=== PATIENT | male | born 1960 | race Caucasian/White ===

== ENCOUNTER 2018-12-31 23:49 | Inpatient (IN) ==
[2019-01-01] MEDS ORDERED: Sodium Chloride 0.9% 1,000 ML PRIMARY IV ONE ×2 (00:03→21:18)
[2019-01-01 00:12] LABS: BASOPHILS # (AUTO) 0.06 10*3/UL; BASOPHILS % (AUTO) 0.3 % (0-1); EOSINOPHILS # (AUTO) 0.58 10*3/UL; EOSINOPHILS % (AUTO) 3.2 % (0-8); Hematocrit [HCT] 47.1 % (42.0-52.0); Hemoglobin [HGB] 15.1 g/dL (14.0-18.0); LYMPHOCYTES # (AUTO) 9.22 10*3/uL; MEAN CORPUSCULAR HGB CONC 32.1 g/dL (33-37); MEAN CORPUSCULAR VOLUME 90.4 FL (80-90); MONOCYTES # (AUTO) 1.08 10*3/UL (0.3-0.8); NEUTROPHILS # (AUTO) 6.83 10*3/UL; NEUTROPHILS % (AUTO) 38.4 % (50-80); RED BLOOD COUNT 5.21 10^6/uL (4.70-6.10)
[2019-01-01 00:18] LABS: PLATELET MORPHOLOGY COMMENT NORMAL MORPHOLOGY (NORM); RBC MORPHOLOGY COMMENT NORMAL MORPHOLOGY (NORM); WBC MORPHOLOGY COMMENT NORMAL MORPHOLOGY (NORM)
[2019-01-01 00:20] LABS: BUN/CREATININE RATIO 11.87 (6-20); SERUM ALBUMIN 5.2 g/dL (3.5-4.8)
[2019-01-01] MEDS ORDERED: Lidocaine 1% 10 MG/ML - 20 ML VIAL SUBCUT ONE (01:49)
[2019-01-01 02:08] LABS: BILIRUBIN,URINE NEGATIVE (NEG); CLARITY,URINE CLEAR (CLEAR); COLOR,URINE YELLOW (Y); GLUCOSE, URINE (UA) NEGATIVE (NEG); OCCULT BLOOD,URINE NEGATIVE (NEG); PROTEIN,URINE NEGATIVE (NEG); UROBILINOGEN,URINE 0.2 EU/dL (0.2)
[2019-01-01 02:16] LABS: URINE SAMPLE TYPE CLEAN CATCH URINE
[2019-01-01 02:17] LABS: AMPHETAMINE SCREEN NEGATIVE (NEG); CANNABINOID SCREEN,URINE NEGATIVE (NEG); COCAINE SCREEN NEGATIVE (NEG); METHADONE URINE SCREEN NEGATIVE (NEG); METHAMPHETAMINES SCREEN,URINE NEGATIVE (NEG); OPIATE SCREEN,URINE NEGATIVE (NEG); URINE SAMPLE TYPE CLEAN CATCH URINE; URINE SPECIFIC GRAVITY - MAN 1.024
[2019-01-01] MEDS ORDERED: HYDROcodone-APAP 5 MG -325 MG TABLET PO PRN (02:38)
[2019-01-01] MEDS ORDERED: Zolpidem Tab 5 MG TAB PO PRN (02:38)
[2019-01-01] MEDS ORDERED: DEXTROSE 31 GM GEL PO PRN (03:09)
[2019-01-01] MEDS ORDERED: DEXTROSE 50%-WATER SYRINGE 50 ML SYRINGE IVP PRN (03:09)
[2019-01-01] MEDS ORDERED: Insulin Sliding Scale Protocol SUBCUT PRN (03:09)
[2019-01-01] MEDS ORDERED: Glucagon Inj Vial 1 MG/ML VIAL IM PRN (03:09)
[2019-01-01] MEDS ORDERED: DIPH,PERTUSS,TET(ADACEL) VAC/PF 0.5 ML (Tdap) IM ONE (03:38)
[2019-01-01] MEDS: ONDANSETRON 4 MG/2 ML VIAL IVP PRN ×2 (03:45→17:15)
[2019-01-01] MEDS: MORPHINE SULFATE 2 MG/1 ML IVP PRN ×4 (03:48→18:49)
[2019-01-01] MEDS ORDERED: Lactated Ringers 1,000 ML PRIMARY IV SCH (08:30)
[2019-01-01 08:54] LABS: BASOPHILS # (AUTO) 0.02 10*3/UL; BASOPHILS % (AUTO) 0.1 % (0-1); EOSINOPHILS # (AUTO) 0.01 10*3/UL; EOSINOPHILS % (AUTO) 0.1 % (0-8); Hematocrit [HCT] 45.3 % (42.0-52.0); Hemoglobin [HGB] 14.8 g/dL (14.0-18.0); LYMPHOCYTES # (AUTO) 1.29 10*3/uL; MEAN CORPUSCULAR HGB CONC 32.7 g/dL (33-37); MEAN CORPUSCULAR VOLUME 89.2 FL (80-90); MEAN PLATELET VOLUME 9.9 FL (7.4-12.2); MONOCYTES # (AUTO) 1.16 10*3/UL (0.3-0.8); NEUTROPHILS # (AUTO) 14.06 10*3/UL; NEUTROPHILS % (AUTO) 84.6 % (50-80); RED BLOOD COUNT 5.08 10^6/uL (4.70-6.10)
[2019-01-01 08:59] LABS: PLATELET MORPHOLOGY COMMENT NORMAL MORPHOLOGY (NORM); RBC MORPHOLOGY COMMENT NORMAL MORPHOLOGY (NORM); WBC MORPHOLOGY COMMENT NORMAL MORPHOLOGY (NORM)
[2019-01-01 09:05] LABS: BLOOD UREA NITROGEN 21 mg/dL (7-22)
[2019-01-01] MEDS: OMEPRAZOLE 20 MG CAPSULE PO SCH (09:12)
[2019-01-01] MEDS ORDERED: Insulin NPH Kwikpen Inj 100 UNIT/ML INSULN.PEN SUBCUT SCH (11:30)
[2019-01-01] MEDS ORDERED: INSULIN REGULAR, HUMAN 100 UNIT/1 ML - 3 ML SUBCUT SCH (11:30)
[2019-01-01] MEDS: Insulin NPH Kwikpen Inj 100 UNIT/ML INSULN.PEN SUBCUT SCH ×2 (12:25→17:06)
[2019-01-01] MEDS: INSULIN REGULAR, HUMAN 100 UNIT/1 ML - 3 ML SUBCUT SCH ×2 (12:26→17:06)
[2019-01-01] MEDS: HYDROcodone-APAP 5 MG -325 MG TABLET PO PRN ×3 (12:27→20:54)
[2019-01-01] MEDS ORDERED: ALPRAZolam Tab 0.25 MG TABLET PO PRN (21:09)
[2019-01-01] MEDS ORDERED: Sodium Chloride 0.9% 500 ML IV ONE (21:10)
[2019-01-02] MEDS: MORPHINE SULFATE 2 MG/1 ML IVP PRN ×5 (00:09→06:48)
[2019-01-02 00:11] LABS: VENOUS PH 7.35 (7.32-7.42)
[2019-01-02] MEDS: HYDROcodone-APAP 5 MG -325 MG TABLET PO PRN (02:11)
[2019-01-02 05:41] LABS: Hematocrit [HCT] 45.5 % (42.0-52.0); Hemoglobin [HGB] 14.6 g/dL (14.0-18.0); MEAN CORPUSCULAR HGB CONC 32.1 g/dL (33-37); MEAN CORPUSCULAR VOLUME 91.2 FL (80-90); MEAN PLATELET VOLUME 10.8 FL (7.4-12.2); RED BLOOD COUNT 4.99 10^6/uL (4.70-6.10)
[2019-01-02 05:57] LABS: BUN/CREATININE RATIO 17.64 (6-20)
[2019-01-02] MEDS: ONDANSETRON 4 MG/2 ML VIAL IVP PRN (06:08)
[2019-01-02 06:15] LABS: PLATELET MORPHOLOGY COMMENT NORMAL MORPHOLOGY (NORM); RBC MORPHOLOGY COMMENT NORMAL MORPHOLOGY (NORM); WBC MORPHOLOGY COMMENT NORMAL MORPHOLOGY (NORM)
[2019-01-02 06:16] LABS: BAND NEUTROPHILS % 12 % (0-10); BASOPHILS % (MANUAL) 0 % (0-1); EOSINOPHILS % (MANUAL) 0 % (0-8); MONOCYTES % (MANUAL) 4 % (0-12); NEUTROPHILS % (MANUAL) 82 % (50-80)
[2019-01-02] MEDS: Insulin NPH Kwikpen Inj 100 UNIT/ML INSULN.PEN SUBCUT SCH ×2 (06:53→12:34)
[2019-01-02] MEDS: INSULIN REGULAR, HUMAN 100 UNIT/1 ML - 3 ML SUBCUT SCH ×2 (07:01→12:34)
[2019-01-02] MEDS ORDERED: LORazepam 2 MG/1 ML VIAL ONE (07:18)
[2019-01-02] MEDS: LORazepam Inj(ETOH withdrawal) 2 MG/ML VIAL IVP PRN ×2 (07:19→09:10)
[2019-01-02 07:29] VITALS: O2SAT 90
[2019-01-02 09:12] VITALS: BP 174/107
[2019-01-02 09:21] VITALS: RESP 41; TEMP 101.6
[2019-01-02] MEDS: OMEPRAZOLE 20 MG CAPSULE PO SCH (09:29)
[2019-01-02] MEDS ORDERED: DIAZEPAM 10 MG/2 ML (5 MG/1 ML) CARPUJECT IVP ONE (09:35)
[2019-01-02] MEDS ORDERED: Dexmedetomidine/NS 400 MCG/100 ML INFUS..BTL IV SCH ×2 (09:45→12:28)
[2019-01-02] MEDS ORDERED: Sodium Chloride 0.9% 1,000 ML PRIMARY IV ONE ×2 (09:48→12:58)
[2019-01-02] MEDS ORDERED: Sodium Chloride 0.9% 1,000 ML PRIMARY IV SCH ×2 (10:00→12:28)
[2019-01-02] MEDS ORDERED: LIDOCAINE HCL 2 % 10 ML JELLY URO-JECT TOPICAL PRN ×3 (10:08→12:28)
[2019-01-02] MEDS ORDERED: FUROSEMIDE 10 MG/1 ML - 4 ML IVP ONE (10:09)
[2019-01-02] MEDS ORDERED: Propofol 1,000 MG/100 ML VIAL IV ONE (10:20)
[2019-01-02] MEDS ORDERED: SUCCINYLCHOLINE CHLORIDE 20 MG/1 ML - 10 ML ONE (10:20)
[2019-01-02] MEDS ORDERED: ETOMIDATE 2 MG/1 ML - 20 ML IVP ONE ×2 (10:20→10:41)
[2019-01-02] MEDS: DIAZEPAM 10 MG/2 ML (5 MG/1 ML) CARPUJECT IVP PRN ×2 (10:39→10:57)
[2019-01-02] MEDS ORDERED: Propofol 1,000 MG/100 ML VIAL IV SCH ×2 (10:45→12:28)
[2019-01-02] MEDS ORDERED: fentaNYL Inj 100 MCG/2 ML VIAL ONE (10:59)
[2019-01-02] MEDS ORDERED: Midazolam Inj 100 MG in Sodium Chloride 0.9% 80 ML IV SCH ×2 (11:15→12:28)
[2019-01-02 11:59] LABS: ABG PCO2 55 MMHG (34-38); ABG PH 7.25 (7.35-7.45); COLLECTION SITE R Rad X2
[2019-01-02 12:00] LABS: ABG BASE EXCESS -3 MMOL/L (-2-2); ABG OXYGEN SATURATION 90 % (90-100); ABG PO2 69 MMHG (65-75)
[2019-01-02] MEDS ORDERED: cefTRIAXone Inj 2 GM in Sodium Chloride 0.9% 100 ML IV SCH (12:28)
[2019-01-02] MEDS ORDERED: Glucagon Inj Vial 1 MG/ML VIAL IM PRN ×2 (12:28)
[2019-01-02] MEDS ORDERED: DEXTROSE 31 GM GEL PO PRN ×2 (12:28)
[2019-01-02] MEDS ORDERED: ONDANSETRON 4 MG/2 ML VIAL IVP PRN (12:28)
[2019-01-02] MEDS ORDERED: DEXTROSE 50%-WATER SYRINGE 50 ML SYRINGE IVP PRN ×2 (12:28)
[2019-01-02] MEDS ORDERED: Insulin Sliding Scale Protocol SUBCUT PRN (12:28)
[2019-01-02] MEDS ORDERED: metroNIDAZOLE 500mg (Premix) 500 MG/100 ML BAG IV SCH (12:28)
[2019-01-02] MEDS ORDERED: LORazepam Inj(ETOH withdrawal) 2 MG/ML VIAL IVP PRN (12:28)
[2019-01-02 12:35] LABS: ABG BASE EXCESS -3 MMOL/L (-2-2); ABG OXYGEN SATURATION 96 % (90-100); ABG PCO2 52 MMHG (34-38); ABG PH 7.27 (7.35-7.45); ABG PO2 91 MMHG (65-75); ALLEN TEST yes; COLLECTION SITE left radial
[2019-01-02] MEDS ORDERED: PANTOPRAZOLE IV 40 MG VIAL IVP ONE (12:36)
[2019-01-02] MEDS ORDERED: fentaNYL Inj 100 MCG/2 ML VIAL IVP PRN (12:50)
[2019-01-02] MEDS ORDERED: Lactated Ringers 1,000 ML PRIMARY IV SCH (13:00)
[2019-01-02] MEDS ORDERED: Insulin Lispro Flexpen 300 UNIT/3 ML INSULN.PEN SUBCUT SCH (16:00)
[2019-01-03] MEDS ORDERED: PANTOPRAZOLE IV 40 MG VIAL IVP SCH (09:00)
== END 2019-01-02 14:05 | disposition short-term general hospital (02) | DRG 189 ==
LOC: ER 23:49 → MED/SURG 23:49 → ICU 01-02 12:35
PROVIDERS: ADMIT Emergency Medicine; ATTEND Emergency Medicine